=== PATIENT | female | born 1985 ===

== ENCOUNTER 2019-08-23 06:25 | Day surgery (SDC) | payer OTHER ==
[2019-08-23] MEDS ORDERED: MONDOXYNE NL100 MG PO (11:19)
[2019-08-23] MEDS ORDERED: tylenol #3 PO (11:19)
== END 2019-08-23 17:45 | disposition home or self-care (01) ==
LOC: CIR.AMB 06:25
DX: N84.0 Polyp of corpus uteri (principal); D25.0 Submucous leiomyoma of uterus; G89.18 Other acute postprocedural pain